=== PATIENT | female | born 1930 ===

== ENCOUNTER 2019-09-05 10:34 | Emergency (ER) | payer MEDICARE, OTHER ==
--- OUTSIDE RECORDS SUMMARY | 2019-09-05 11:36 | XMS REPORT | Continuity of Care Document ---
:1930 External Reference #:[id number] Author Name Ivy Sánchez, LEROA, FLAME C[employer]TER Address [address] [place] [address] Care Team Providers Name Role Phone Derrick Schuster MD - Family Care Team Information [employer] [phone] Medicine Chito Chanel MD - Emergency Medicine Care Team Information [employer] Problems Active Problems Provider Date Dyspnea Keaton Flores M.D., Onset: 04/06/2011 [facility] Coronary arteriosclerosis Keaton Flores M.D., Onset: 04/06/2011 [facility] Hyperlipidemia Keaton Flores M.D., Onset: 04/06/2011 [facility] Benign essential hypertension Keaton Flores M.D., Onset: 04/06/2011 [facility] Type II diabetes mellitus uncontrolled Keaton Flores M.D., Onset: [facility] Left bundle branch block Keaton Flores M.D., Onset: 04/06/2011 [facility] Chest pain Keaton Flores M.D., Onset: 08/10/2012 [facility] Aortic valve disorder Keaton Flores M.D., Onset: 08/14/2013 [facility] Mitral valve disorder Keaton Flores M.D., Onset: 08/14/2013 [facility] Essential hypertension Keaton Flores M.D., Onset: 08/27/2015 [facility] Atherosclerotic heart disease of SánchezIvy silva, [place], Onset: 2017 [place] coronary artery with [employer] unspecified angina pectoris Senile asthenia Payton Crow MD Onset: 04/12/2018 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 Social History Type Date Description Comments Sex Unknown Tobacco Use Start: Unknown Never Smoked Cigarettes Smoking Status Reviewed: 04/30/19 Never Smoked Cigarettes ETOH Use Denies alcohol use Exercise Type/Frequency Exercises regularly Walks daily Allergies, Adverse Reactions, Alerts Description No Known Drug Allergies Medications Active Medications SIG Qnty Indications Ordering Provider Date Enalapril Maleate 1 tab by mouth 60tabs I95.1 Ivy Sánchez 01/09/2019 5mg twice a day Dung, MSN, Tablets [employer] I10 Aspirin 1 by mouth every I25.10 Ivy Sánchez 08/28/[address] marilin Razo, MSN, [employer] Nitrostat 1 tab sl every 5 25tabs I25.119 Ivy Sánchez 01/25/2018 0.4mg Tablets Sub min x3 chest [place] Razo, FLAME CUTTER pain Preservision Areds 1 po bid Unknown Capsules Vitamin D 1 by mouth every Unknown 500Unit Tablets day Latanoprost 1 drop each eye Unknown 0.005% Solution at night Brimonidine Tartrate a/d daily Unknown 0.2% Solution Vitamin B-12 1 tabl by mouth Unknown 500mcg Tablets daily Sub Senna Plus 1 by mouth as Unknown 8.6-50mg Tablets needed Rosuvastatin Calcium 1 by mouth every 90tabs Derrick Schuster, 10mg day Tablets Metformin HCL ER 2 by mouth every Unknown 750mg day Tablets ER 24HR Furosemide 1 by mouth every Unknown 20mg Tablets day Spironolactone 1 by mouth every Unknown 25mg Tablets day Medications Administered in Office Medication SIG Qnty Indications Ordering Provider Date Depomedrol 40mg/1cc Tomasz Rosas MD 01/19/2010 (methylprednisolone acetate) Injection Depomedrol 40mg/1cc Ailyn Erazo MD 07/25/2009 (methylprednisolone acetate) Injection Immunizations Description No Information Available Vital Signs Date Vital Result Comment 07/19/2019 1:02pm BP Systolic Sitting Left Arm 130 mmHg BP Diastolic Sitting Left Arm 65 mmHg Heart Rate 88 /min Respiratory Rate 16 /min Height 67 inches 5'7" Weight 153.00 lb BMI (Body Mass Index) 24.0 kg/m2 BSA (Body Surface Area) 1.80 m2 [place] body weight in kilograms 61 kg O2 % BldC Oximetry 99 % Ejection Fraction 60% 04/30/2019 10:05am BP Systolic Sitting Left Arm 128 mmHg BP Diastolic Sitting Left Arm 64 mmHg Heart Rate 75 /min Respiratory Rate 17 /min Height 67 inches 5'7" Weight 151.00 lb BMI (Body Mass Index) 23.6 kg/m2 BSA (Body Surface Area) 1.79 m2 [place] body weight in kilograms 61 kg O2 % BldC Oximetry 95 % Results Test Date Facility Test Result H/L Range Note CBC 04/30/2019 [facility] White Blood 7.6 K/uL Normal 3.1-10.7 1 W/Automated [address] Count Diff [place], [place] [id number] [phone] Red Blood Count 4.16 M/uL Normal 3.90-5.40 Hemoglobin 12.6 gm/dL Normal 11.6-15.8 Hematocrit 37.6 % Normal 36.0-46.1 Mean Cell Volume 90.4 fl Normal 80.9-99.0 Mean Corpuscular HGB 30.3 pg Normal 25.9-32.7 Mean Corpuscular HGB Conc 33.5 g/dL Normal 30.8-34.3 Platelet Count 267 K/uL Normal 155-360 Red Cell Distri Width SD 39.8 fl Normal 36-47 Red Cell Distri Width %CV 12.2 % Normal 11.7-14.4 Mean Platelet Volume 10.1 fl Normal 8.9-12.4 Neut% 60.7 % Normal 40.4-72.8 Lymph % 26.6 % Normal 20.0-42.0 [place] % 10.4 % Normal 4.3-13.2 Eo% 1.6 % Normal 0.0-6.6 Bas% 0.4 % Normal 0.0-1.1 Immature Grans 0.3 % Normal 0.0-5.0 NRBC % 0.0 /100WBC < 10/ 100 WBC Neut# 4.64 K/uL Normal 1.8-7.0 Lymph # 2.03 K/uL Normal 1.0-4.0 [place] # 0.79 K/uL Normal 0.3-0.9 Eos # 0.12 K/uL Normal 0.0-0.5 Baso # 0.03 K/uL Normal 0.0-0.1 Immature Grans Absolute 0.02 K/uL NRBC # 0.00 K/uL Comprehensive Metabolic 04/30/2019 [facility] Glucose 114 mg/dL High 74-[address] [place] [address] [phone] BUN 34 mg/dL High 7-18 Creatinine 1.2 mg/dL Normal 0.6-1.3 Glom Filtration Rate, Estimate 45 mL/min >60 If 55 mL/min >60 2 BUN/Creat 28.3 ratio Sodium 130 mmol/L Low 136-145 Potassium 4.2 mmol/L Normal 3.5-5.1 Chloride 95 mmol/L Low 98-107 Carbon Dioxide 27 mmol/L Normal 21-32 Anion Gap 8 mEq/L Normal 8-16 Calcium 9.7 mg/dL Normal 8.5-10.1 Total Protein 8.4 g/dL High 6.4-8.2 Albumin 4.0 g/dL Normal 3.4-5.0 Globulin 4.4 g/dL High 1.9-4.3 Alb/Glob 0.9 ratio Bilirubin,Total 0.3 mg/dL Normal 0.2-1.0 Sgot/Ast 23 U/L Normal 15-37 SGPT/Alt 21 U/L Normal 12-78 Alkaline Phosphatase 77 U/L Normal 45-117 Reflex add FT3? Y Reflex add FT4? Y TSH Reflex 04/30/2019 [facility] Thyroid Stim 1.87 uIU/mL Normal 0.30-4.20 FT4 And/Or [address] Hormone FT3 [place] [address] [phone] Reflex add FT3? Y Reflex add FT4? Y 1 M79.601 R06.02 2 Note: Persistent reduction for 3 months or more in an eGFR <60 mL/min/1.73 m2 defines CKD. Patients with eGFR values >/=60 mL/min/1.73 m2 may also have CKD if evidence of persistent proteinuria is present. The original MDRD equation for estimated GFR is not valid for patients less than 18 years of age. Additional information may be found at www.kdoqi.org. Procedures Date Code Description Status 05/03/2019 68414 Event Monitor Inter/Review Only Completed 04/30/2019 68369 EKG-Tracing And Report Completed Medical Devices Description No Information Available Encounters Type Date Location Provider Dx Diagnosis Office Visit 07/19/2019 Cardiology Office Ivy Sánchez R06.02 Shortness of 1:00p [place] Razo, breath [employer] R53.1 Weakness M79.605 Pain in left leg I25.5 Ischemic cardiomyopathy I25.10 Athscl heart disease of [place] coronary artery w/o ang pctrs I44.7 Left bundle-branch block, unspecified I10 Essential (primary) hypertension I34.0 Nonrheumatic mitral (valve) insufficiency I95.1 Orthostatic hypotension Office Visit 04/30/2019 10:00a Cardiology Office Ivy Sánchez R06.02 Shortness of [place] Razo, breath [employer] M79.605 Pain in left leg R53.1 Weakness I25.5 Ischemic cardiomyopathy I25.10 Athscl heart disease of [place] coronary artery w/o ang pctrs I44.7 Left bundle-branch block, unspecified I10 Essential (primary) hypertension I34.0 Nonrheumatic mitral (valve) insufficiency I95.1 Orthostatic hypotension Office Visit 03/23/2019 3:00p Cardiology Lucy, I25.5 Ischemic Office Galen Sherwood, cardiomyopathy [place] I25.10 Athscl heart disease of [place] coronary artery w/o ang pctrs I44.7 Left bundle-branch block, unspecified I10 Essential (primary) hypertension I34.0 Nonrheumatic mitral (valve) insufficiency Assessments Date Code Description Provider 07/19/2019 R06.02 Shortness of breath Ivy Sánchez, [place], [employer] 07/19/2019 R53.1 Weakness Ivy Sánchez, MSN, [employer] 07/19/2019 M79.605 Pain in left leg Ivy Sánchez MSN, [employer] 07/19/2019 I25.5 Ischemic cardiomyopathy Ivy Sánchez, [place], [employer] 07/19/2019 I25.10 Atherosclerotic heart disease of SánchezIvy silva, [place], [place] coronary artery with [facility] 07/19/2019 I44.7 Left bundle-branch block, unspecified Ivy Sánchez, LE[place], [facility] 07/19/2019 I10 Essential (primary) hypertension SánchezIvy waters, MSN, [facility] 07/19/2019 I34.0 Nonrheumatic mitral (valve) SánchezIvy silva, MSN, insufficiency [facility] 07/19/2019 I95.1 Orthostatic hypotension SánchezIvy silva, MSN, [facility] 05/03/2019 R00.1 Bradycardia, unspecified Anabel Perdomo MD 05/03/2019 R06.02 Shortness of breath Anabel Perdomo MD 05/03/2019 R53.1 Weakness Anabel Perdomo MD 04/30/2019 R06.02 Shortness of breath Ivy Sánchez, LE[place], [facility] 04/30/2019 M79.605 Pain in left leg Ivy Sánchez MSN, [facility] 04/30/2019 R53.1 Weakness Ivy Sánchez, MSN, [facility] 04/30/2019 I25.5 Ischemic cardiomyopathy Ivy Sánchez, LE[place], [facility] 04/30/2019 I25.10 Atherosclerotic heart disease of SánchezIvy silva, [place], [place] coronary artery with [facility] 04/30/2019 I44.7 Left bundle-branch block, unspecified Ivy Sánchez, LEORA, [facility] 04/30/2019 I10 Essential (primary) hypertension SánchezIvy waters, MSN, [facility] 04/30/2019 I34.0 Nonrheumatic mitral (valve) SánchezIvy silva MSN, insufficiency [facility] 04/30/2019 I95.1 Orthostatic hypotension SánchezIvy waters MSN, [facility] 03/23/2019 I25.5 Ischemic cardiomyopathy Galen Ayala PA 03/23/2019 I25.10 Atherosclerotic heart disease of Galen Ayala, [place] coronary artery with 03/23/2019 I44.7 Left bundle-branch block, unspecified Galen Ayala PA 03/23/2019 I10 Essential (primary) hypertension Galen Ayala PA 03/23/2019 I34.0 Nonrheumatic mitral (valve) Galen Ayala PA insufficiency Plan of Treatment Future Appointment(s):10/24/2019 10:20 am - Ivy Sánchez, [place], FLAME CUTTER at Cardiology Office Functional Status Functional Condition Comment Date Status Independent with all ADL's Active Mental Status Description No Information Available Referrals Description No Information Available
[2019-09-05 12:00] VITALS: BP 115/57
--- NOTE | 2019-09-05 12:05 | UC ---
Lower Extremity/Ankle HPI - HPI Summary HPI Summary: 88-year-old female presents with complaints of left foot pain. States yesterday she got up from sitting in a chair and tripped over a footstool causing an inversion injury to her left foot. Reports did not fall. States she was able to walk and bear weight on the foot immediately after the injury however this morning when she attempts to bear weight noted increased pain to the lateral aspect of the foot as well as to the posterior heel. Has peripheral neuropathy at baseline but feels that this is unchanged. - History of Current Complaint Chief Complaint: UCLowerExtremity Stated Complaint: ANKLE INJ Time Seen by Provider: 09/05/19 11:41 Hx Obtained From: Patient Pain Intensity: 7 - Allergies/Home Medications Allergies/Adverse Reactions: Allergies Allergy/AdvReac Type Severity Reaction Status Date / Time No Known Drug Allergies Allergy See Comment Verified 09/05/19 11:50 Home Medications: Home Medications Aspirin [Aspirin Childrens 81 MG] 81 mg PO DAILY 09/05/19 [History Confirmed ] Brimonidine Tartrate/Timolol [Combigan 0.2%-0.5% Eye Drops] 1 drop BOTH EYES DAILY 09/05/19 [History Confirmed 09/05/19] Cholecalciferol TAB* [Vitamin D TAB*] 500 units PO DAILY 09/05/19 [History Confirmed 09/05/19] Cyanocobalamin (Vitamin B-12) [Vitamin B-12] 1,000 mcg SL DAILY 09/05/19 [ History Confirmed 09/05/19] Enalapril Maleate [Vasotec] 5 mg PO BID 09/05/19 [History Confirmed 09/05/19] Furosemide 20 mg PO DAILY 09/05/19 [History Confirmed 09/05/19] Latanoprost/Pf [Latanoprost 0.005% Eye Drop] 1 drop BOTH EYES DAILY 09/05/19 [ History Confirmed 09/05/19] Metformin HCl [Metformin HCl ER] 1,500 mg PO DAILY 09/05/19 [History Confirmed 09/05/19] Nitroglycerin 0.4 mg SL Q12HR PRN 09/05/19 [History Confirmed 09/05/19] Rosuvastatin Calcium [[place] Sprinkle] 10 mg PO DAILY 09/05/19 [History Confirmed 09/05/19] Sennosides/Docusate Sodium [Senna Plus 8.6-50 mg Tablet] 1 tab PO DAILY [History Confirmed 09/05/19] Spironolactone 25 mg PO DAILY 09/05/19 [History Confirmed 09/05/19] Vit C/E/Zn/Coppr/Lutein/Zeaxan [Preservision Areds 2 Softgel] 1 cap PO BID 09/05 [History Confirmed 09/05/19] PMH/Surg Hx/FS Hx/Imm Hx Endocrine History: Diabetes, Dyslipidemia Cardiovascular History: Cardiac Disease, Hypertension - Surgical History Surgical History: Yes Surgery Procedure, Year, and Place: cabg, brian, appy, hyster, broke small toe left foot - Family History Known Family History: Positive: Non-Contributory - Social History Occupation: Retired Lives: [facility] Alcohol Use: None Substance Use Type: None Smoking Status (MU): Never Smoked Tobacco Review of Systems All Other Systems Reviewed And Are Negative: Yes Constitutional: Positive: Negative Skin: Positive: Bruising Respiratory: Positive: Negative Cardiovascular: Positive: Negative Gastrointestinal: Positive: Negative Genitourinary: Positive: Negative Musculoskeletal: Positive: Other: - See HPI Neurological: Positive: Negative Is Patient Immunocompromised?: No Physical Exam - Summary Physical Exam Summary: GENERAL APPEARANCE: Well developed, well nourished, alert and cooperative, and appears to be in no acute distress. CARDIAC: Normal S1 and S2. No S3, S4 or murmurs. Rhythm is regular. There is no peripheral edema, cyanosis or pallor. Extremities are warm and well perfused. Capillary refill is less than 2 seconds. Peripheral pulses intact. LUNGS: Clear to auscultation without rales, rhonchi, wheezing or diminished breath sounds. ABDOMEN: Positive bowel sounds. Soft, nondistended, nontender. No guarding or rebound. No masses or hepatosplenomegally. MUSKULOSKELETAL: Normal muscular development. EXTREMITIES: Tenderness over the left 4th and 5th metatarsals and posterior left heel without gross deformity, edema, or ecchymosis. Circulation intact. Sensation at baseline. SKIN: Skin normal color, texture and turgor. Triage Information Reviewed: Yes Vital Signs: Initial Vital Signs Temp 97.1 F 09/05/19 11:51 Pulse 83 09/05/19 11:51 Resp 20 09/05/19 11:51 BP 115/57 09/05/19 11:51 Pulse Ox 100 09/05/19 11:51 Vital Signs Reviewed: Yes Diagnostics - Radiology No standard instances Radiology Interpretation Completed By: Radiologist Summary of Radiographic Findings: Order Information: FOOT LEFT 3+ VWS. COMPARISONS: March 09, 2016. VIEWS: 3, Frontal, lateral, and oblique views of the left foot. FINDINGS: BONE DENSITY: There is diffuse osteopenia. BONES: There is an oblique nondisplaced fracture of the distal fifth metatarsal. JOINTS: There is no arthropathy. ALIGNMENT: There is no dislocation. SOFT TISSUES: Unremarkable. OTHER FINDINGS: None. IMPRESSION: OBLIQUE NONDISPLACED FRACTURE OF THE DISTAL FIFTH METATARSAL. OSTEOPENIA. Lower Extremity Course/Dx - Course Course Of Treatment: 88-year-old female presents with complaints of left foot pain. States yesterday she got up from sitting in a chair and tripped over a footstool causing an inversion injury to her left foot. Reports did not fall. States she was able to walk and bear weight on the foot immediately after the injury however this morning when she attempts to bear weight noted increased pain to the lateral aspect of the foot as well as to the posterior heel. Has peripheral neuropathy at baseline but feels that this is unchanged. Afebrile. Vital signs stable. Patient had tenderness over the left proximal 4th metatarsal and posterior left heel without gross deformity, edema, or ecchymosis. Circulation intact. Sensation at baseline. Remainder of exam was unremarkable. X-ray showed an oblique nondisplaced fracture of the distal fifth metatarsal. Reviewed findings with the patient. Recommending conservative treatment for a nondisplaced left fifth metatarsal fracture including [id number] analgesics and RICE. Patient was placed in a postop shoe and recommended weightbearing as tolerated. She is to follow-up with orthopedic surgery in 3-5 days for further evaluation and treatment. Anticipatory guidance and warning symptoms were reviewed with the patient. Verbalizes understanding and agrees with plan of care. - Differential Dx/Diagnosis Differential Diagnosis/HQI/PQRI: Contusion, Fracture (Closed), Sprain Provider Diagnosis: Nondisplaced fracture of fifth left metatarsal bone Discharge ED - Sign-Out/Discharge Documenting (check all that apply): Patient Departure All imaging exams completed and their final reports reviewed: Yes - Discharge Plan Condition: Stable Disposition: HOME Patient Education Materials: Foot Fracture in Adults (ED) Referrals: Derrick Schuster MD [Primary Care Provider] - Ji Velasquez MD [Medical Doctor] - 3 Days (Call for appointment.) Additional Instructions: The x-ray performed in the clinic today showed evidence of a fracture of the 5th metatarsal. Wear the post-op shoe that was applied in the clinic today. You may remove to sleep and shower but should wear at all other times. You may walk and bear weight on the foot as tolerated. Rest the foot as much as possible. Apply ice to the affected area for 15-20 minutes at least 4 times a day to help with the pain and swelling. Elevate the foot to help reduce swelling. Take acetaminophen (Tylenol) according to directions as needed for pain. Follow up with orthopedic surgery in 3-5 days for further evaluation and treatment. Call for an appointment. Seek immediate medical attention if you have severe pain not managed with pain medication, you are unable to walk or bear any weight, worsening swelling of the foot, or have any worsening of symptoms. - Billing Disposition and Condition Condition: STABLE Disposition: Home
== END 2019-09-05 12:53 | disposition home or self-care (01) ==
LOC: UCCORT 10:34
DX: S92.355A Nondisplaced fracture of fifth metatarsal bone, left foot, initial encounter for closed fracture (principal); E11.9 Type 2 diabetes mellitus without complications; I10 Essential (primary) hypertension; Z79.82 Long term (current) use of aspirin; Z79.899 Other long term (current) drug therapy; E78.5 Hyperlipidemia, unspecified; Z79.84 Long term (current) use of oral hypoglycemic drugs; Z95.1 Presence of aortocoronary bypass graft; X50.0XXA Overexertion from strenuous movement or load, initial encounter; Y92.9 Unspecified place or not applicable
CPT/HCPCS: 99203; G0463